=== PATIENT | male | born 1945 | race Caucasian/White ===

== ENCOUNTER 2024-02-09 12:31 | Outpatient (CLI) | payer MEDICARE, BC | END 2024-02-09 12:32 | disposition home or self-care (01) | LOC: CSHULT 12:31 | PROVIDERS: ATTEND Family Medicine | DX: R59.0 Localized enlarged lymph nodes (principal); Z86.39 Personal history of other endocrine, nutritional and metabolic disease; E04.1 Nontoxic single thyroid nodule | CPT/HCPCS: 76536; 76999 ==

== ENCOUNTER 2025-03-04 10:51 | Emergency (ER) | payer MEDICARE, BC | END 2025-03-04 13:39 | disposition home or self-care (01) | LOC: CSHERS 10:51 | DX: J06.9 Acute upper respiratory infection, unspecified (principal) | CPT/HCPCS: 71045; 87428 ==